=== PATIENT | male | born 1995 | race American Indian/Alaskan Native ===

== ENCOUNTER 2021-07-06 00:06 | Emergency (ER) | payer SELFPAY ==
[2021-07-06] MEDS ORDERED: FLUORESCEIN 1 MG STRIP OP ONE (02:03)
[2021-07-06] MEDS ORDERED: TETRACAINE 0.5% OPHTH SOLN 4ML OU PRN (02:03)
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
[2021-07-06 03:46] VITALS: BP 124/88
== END 2021-07-06 03:44 | disposition home or self-care (01) ==
LOC: ED 00:06
DX: S05.01XA Injury of conjunctiva and corneal abrasion without foreign body, right eye, initial encounter (principal); H10.31 Unspecified acute conjunctivitis, right eye; Y08.89XA Assault by other specified means, initial encounter; Y93.89 Activity, other specified; Y92.89 Other specified places as the place of occurrence of the external cause; Y99.8 Other external cause status
CPT/HCPCS: 99282